=== PATIENT | female | born 1965 | race Two or more races ===

== ENCOUNTER 2023-02-27 07:58 | Day surgery (SDC) | payer MEDICAID ==
[~2023-02-27] VITALS: Ht 157.5 cm; Wt 72.6 kg
[2023-02-27] MEDS ORDERED: MEPERIDINE 100 MG INJ. 100 MG/ML VIAL ONE (08:13)
[2023-02-27] MEDS ORDERED: MIDAZOLAM HCL 5 MG/5 ML VIAL ONE ×2 (08:14→09:47)
[2023-02-27 10:46] VITALS: O2SAT 99
[2023-02-27 13:21] VITALS: BP_SYST 127; PULSE 77; RESP 18; TEMP 98
== END 2023-02-27 11:20 | disposition home or self-care (01) ==
LOC: SDS 07:58 → SMU 07:59 → SDS 11:20
PROVIDERS: ATTEND Internal Medicine Gastroenterology
DX: Z12.11 Encounter for screening for malignant neoplasm of colon (principal); D12.4 Benign neoplasm of descending colon; K29.50 Unspecified chronic gastritis without bleeding; K44.9 Diaphragmatic hernia without obstruction or gangrene; K64.8 Other hemorrhoids; K21.9 Gastro-esophageal reflux disease without esophagitis; R16.0 Hepatomegaly, not elsewhere classified; F41.9 Anxiety disorder, unspecified; E11.9 Type 2 diabetes mellitus without complications; Z79.899 Other long term (current) drug therapy
CPT/HCPCS: 45380; 45385; 43239; 87081; 36415; 88305; 88312; 88313; 99152; 99153; G0378; J2250; J2175